=== PATIENT | male | born 1965 | race Caucasian/White ===

== ENCOUNTER 2018-05-10 15:40 | Emergency (ER) | payer BC, OTHER ==
[2018-05-10 15:57] VITALS: BP 125/92
--- NOTE | 2018-05-10 16:30 | UC ---
Throat Pain/Nasal Marko HPI - HPI Summary HPI Summary: Patient is a 53-year-old male with a history of ITP. He is here with a 3 day history of fever chills severe headache severe myalgias and severe arthralgias. He has had no rash. He denies any cough. He denies any abdominal pain. He has no UTI symptoms. He does have a sore throat. His son had mono 2 months ago. - History of Current Complaint Chief Complaint: UCGeneralIllness Stated Complaint: SORE THROAT, BODY ACHES Time Seen by Provider: 05/10/18 15:58 Hx Obtained From: Patient Onset/Duration: Sudden Onset, Lasting Days - 3 Severity: Moderate Pain Intensity: 6 Pain Scale Used: 0-10 Numeric Cough: None Associated Signs & Symptoms: Positive: Fever - Epiglottits Risk Factors Epiglottis Risk Factors: Negative - Allergies/Home Medications Allergies/Adverse Reactions: Allergies Allergy/AdvReac Type Severity Reaction Status Date / Time No Known Allergies Allergy Verified 05/10/18 15:57 Home Medications: Home Medications Acetaminophen [Tylenol Extra Strength] 1,000 mg PO DAILY 05/10/18 [History Confirmed 05/10/18] PMH/Surg Hx/FS Hx/Imm Hx Previously Healthy: Yes - Surgical History Surgical History: None - Family History Known Family History: Positive: Hypertension - Social History Alcohol Use: Rare Substance Use Type: None Smoking Status (MU): Never Smoked Tobacco Type: eCigarettes - Immunization History Most Recent Tetanus Shot: 03/11/13 Review of Systems Constitutional: Fever, Chills, Fatigue Skin: Negative Eyes: Negative ENT: Sore Throat Respiratory: Negative Cardiovascular: Negative Gastrointestinal: Negative Genitourinary: Negative Motor: Negative Neurovascular: Negative Musculoskeletal: Arthralgia, Myalgia Neurological: Headache Psychological: Negative Is Patient Immunocompromised?: No All Other Systems Reviewed And Are Negative: Yes Physical Exam Triage Information Reviewed: Yes Appearance: Well-Nourished, Ill-Appearing, Pain Distress Vital Signs: Initial Vital Signs Temp 100.6 F 05/10/18 15:53 Pulse 99 05/10/18 15:53 Resp 18 05/10/18 15:53 BP 125/92 05/10/18 15:53 Pulse Ox 100 05/10/18 15:53 Eyes: Positive: Conjunctiva Clear ENT: Positive: Hearing grossly normal, Pharyngeal erythema, TMs normal, Tonsillar swelling, Uvula midline. Negative: Nasal drainage, Tonsillar exudate , Trismus, Muffled voice, Hoarse voice, Sinus tenderness Neck: Positive: Supple, Nontender, No Lymphadenopathy Respiratory: Positive: Lungs clear, Normal breath sounds, No respiratory distress, No accessory muscle use Cardiovascular: Positive: RRR, No Murmur Abdomen Description: Positive: Nontender, No Organomegaly, Soft. Negative: CVA Tenderness (R), CVA Tenderness (L) Musculoskeletal: Positive: ROM Intact, No Edema Neurological: Positive: Alert Psychological Exam: Normal Skin Exam: Normal Diagnostics - Laboratory Diagnostic Studies Completed/Ordered: strep (-) Throat Pain/Nasal Course/Dx - Course Course Of Treatment: d/w [facility]. to [facility] ER. declines EMS transfer - Differential Dx/Diagnosis Provider Diagnoses: fever of uncertain cause Discharge - Sign-Out/Discharge Documenting (check all that apply): Patient Departure - Discharge Plan Condition: Stable Disposition: TRANS HIGHER LVL OF CARE FAC Referrals: Sylvester Pereira MD [Primary Care Provider] - Additional Instructions: I suggest you go straight to the ER for evaluation of you fever I spoke to NGUYỄN Willoughby - Billing Disposition and Condition Condition: STABLE Disposition: Trans Higher Lvl of Care Fac
== END 2018-05-10 16:28 | disposition short-term general hospital (02) ==
LOC: UCCORT 15:40
DX: R50.9 Fever, unspecified (principal)
CPT/HCPCS: 87651; 99212; G0463

== ENCOUNTER 2021-09-09 11:11 | Inpatient (IN) ==
[2021-09-09] MEDS ORDERED: Lactated Ringers 1000 ml BAG 1,000 ML IV ONE (11:28)
[2021-09-09 11:37] LABS: Hematocrit 42 % (42-52); Hemoglobin 14.3 g/dL (14.0-18.0); Mean Corpuscular HGB Conc 34 g/dL (31-36); Mean Corpuscular Hemoglobin 28 pg (27-31); Mean Corpuscular Volume 82 fL (80-94); Mean Platelet Volume 8.5 fL (7.4-10.4); Platelet Count 313 10^3/uL (150-450); Red Cell Distribution Width 13 % (10-15); Venous Bicarbonate HCO3 21.2 mmol/L (24-28); White Blood Count 8.7 10^3/uL (3.5-10.8)
[2021-09-09 11:54] LABS: ALT 15 U/L (7-52); AST 34 U/L (13-39); Albumin 2.6 g/dL (3.2-5.2); Albumin/Globulin Ratio 0.5 (1-3); Alkaline Phosphatase 91 U/L (35-149); Anion Gap 15 mmol/L (2-11); Blood Urea Nitrogen 14 mg/dL (6-24); CO2 Carbon Dioxide 21 mmol/L (22-32); Calcium 8.7 mg/dL (8.6-10.3); Chloride 95 mmol/L (101-111); Glucose 168 mg/dL (70-100); Potassium 3.9 mmol/L (3.5-5.0); Sodium 131 mmol/L (135-145); Total Protein 7.6 g/dL (6.4-8.9); eGFR CKD-EPI 88.9 (>60)
[2021-09-09 12:14] LABS: Troponin I 0.08 ng/mL (<0.03)
[2021-09-09 12:23] LABS: ABS Basophils 0.1 10^3/ul (0-0.2); ABS Lymphocytes 0.4 10^3/ul (1.0-4.8); ABS Monocytes 0.2 10^3/ul (0-0.8); Eosinophil % 0.2 %; Lymphocyte % 4.7 %
[2021-09-09] MEDS ORDERED: Iohexol 350 (CONTRAST) 500 ML MDV IV ONE (12:43)
[2021-09-09] MEDS ORDERED: Lactated Ringers 500 ml BAG 500 ML IV ONE ×2 (12:57→13:55)
[2021-09-09 13:24] LABS: Venous Bicarbonate HCO3 25.7 mmol/L (24-28)
[2021-09-09] MEDS ORDERED: cefTRIAXone 1 gm/50 mL NS BAG 1 GM/50 ML BAG IV ONE (14:34)
[2021-09-09] MEDS ORDERED: Azithromycin 500 mg/250 ml NS 500 MG/250 ML BAG IVPB ONE (14:35)
[2021-09-09 14:52] LABS: Troponin I 0.09 ng/mL (<0.03)
[2021-09-09] MEDS ORDERED: Albuterol/Ipratropium NEB.SOL (2.5/0.5 MG) 3 ML NEB.SOLN INH ONE (14:54)
[2021-09-09] MEDS ORDERED: Lactated Ringers 1000 ml BAG 1,000 ML IV SCH (17:00)
[2021-09-09] MEDS ORDERED: Furosemide 20 mg/2 ml IV VIAL IV SLOW PU ONE (21:01)
[2021-09-09 21:20] LABS: C Reactive Protein 122.07 mg/L (<8.01)
[2021-09-09 21:33] LABS: Cholesterol 107 mg/dL; HDL Cholesterol 23.1 mg/dL; LDL Cholesterol 58 mg/dL; Triglycerides 129 mg/dL
[2021-09-09] MEDS: Enoxaparin 40 MG/0.4 ML SYR SUBCUT SCH (21:34)
[2021-09-09 22:06] LABS: Troponin I 0.04 ng/mL (<0.03)
[2021-09-09 23:55] LABS: Ferritin > 1500.0 ng/mL (24-336)
[2021-09-10 07:38] LABS: Hematocrit 33 % (42-52); Hemoglobin 11.3 g/dL (14.0-18.0); Mean Corpuscular HGB Conc 34 g/dL (31-36); Mean Corpuscular Hemoglobin 28 pg (27-31); Mean Corpuscular Volume 82 fL (80-94); Mean Platelet Volume 8.3 fL (7.4-10.4); Platelet Count 212 10^3/uL (150-450); Red Blood Count 3.99 10^6 /uL (4.18-5.48); Red Cell Distribution Width 13 % (10-15); White Blood Count 6.6 10^3/uL (3.5-10.8)
[2021-09-10 07:53] LABS: Calcium 8.1 mg/dL (8.6-10.3); Potassium 3.6 mmol/L (3.5-5.0); eGFR CKD-EPI 110.4 (>60)
[2021-09-10] MEDS ORDERED: Lactated Ringers 1000 ml BAG 1,000 ML IV ONE (09:17)
[2021-09-10] MEDS: Aspirin EC 81 mg TAB.EC (enteric coated) PO SCH (09:58)
[2021-09-10 11:00] LABS: Erythrocyte Sed Rate 120 mm/Hr (0-19)
[2021-09-10] MEDS ORDERED: methylPREDNISolone 125 mg 2 ML VIAL IM ONE (12:19)
[2021-09-10] MEDS ORDERED: Furosemide 40 mg/4 ml IV VIAL IV ONE (12:25)
[2021-09-10] MEDS: cefTRIAXone 1 gm/50 mL NS BAG 1 GM/50 ML BAG IVPB SCH (14:00)
[2021-09-10] MEDS ORDERED: methylPREDNISolone 125 mg 2 ML VIAL IV ONE (14:03)
[2021-09-10] MEDS ORDERED: Perflutren Lipid Microsphere 3 ML VIAL ONE (14:13)
[2021-09-10] MEDS: Albuterol/Ipratropium NEB.SOL (2.5/0.5 MG) 3 ML NEB.SOLN INH SCH ×2 (16:26→19:06)
[2021-09-10] MEDS: methylPREDNISolone SOD 40 mg/ml 1 ml VIAL IV SCH ×2 (16:27→23:13)
[2021-09-10 18:02] LABS: Creatine Kinase 34 U/L (10-223)
[2021-09-10 18:23] LABS: Rheumatoid Factor 13 IU/mL (<15)
[2021-09-10 20:14] LABS: Urine Appearance Clear; Urine Bilirubin Negative (Negative); Urine Blood Negative (Negative); Urine Color Yellow; Urine Glucose Negative (Negative); Urine Ketones Negative (Negative); Urine Nitrite Negative (Negative); Urine Protein Negative (Negative); Urine Specific Gravity 1.013 (1.002-1.030); Urine Urobilinogen Negative (Negative)
[2021-09-10] MEDS: Enoxaparin 40 MG/0.4 ML SYR SUBCUT SCH (23:13)
[2021-09-10 23:57] LABS: HIV 4th Generation Preliminary Reactive (Nonreactive)
[2021-09-11 05:10] LABS: Hematocrit 31 % (42-52); Hemoglobin 10.4 g/dL (14.0-18.0); Mean Corpuscular HGB Conc 34 g/dL (31-36); Mean Corpuscular Hemoglobin 28 pg (27-31); Mean Corpuscular Volume 82 fL (80-94); Mean Platelet Volume 8.6 fL (7.4-10.4); Platelet Count 202 10^3/uL (150-450); Red Blood Count 3.76 10^6 /uL (4.18-5.48); Red Cell Distribution Width 13 % (10-15); White Blood Count 5.5 10^3/uL (3.5-10.8)
[2021-09-11 05:12] LABS: ABS Lymphocytes 0.2 10^3/ul (1.0-4.8); ABS Monocytes 0.1 10^3/ul (0-0.8); ABS Neutrophils 5.2 10^3/ul (1.5-7.7); Lymphocyte % 3.1 %
[2021-09-11 05:26] LABS: Calcium 7.9 mg/dL (8.6-10.3); eGFR CKD-EPI 114.4 (>60)
[2021-09-11 06:06] LABS: Ferritin 1176.6 ng/mL (24-336)
[2021-09-11] MEDS: Albuterol/Ipratropium NEB.SOL (2.5/0.5 MG) 3 ML NEB.SOLN INH SCH ×3 (08:05→19:49)
[2021-09-11] MEDS: methylPREDNISolone SOD 40 mg/ml 1 ml VIAL IV SCH ×3 (09:13→23:16)
[2021-09-11] MEDS: Aspirin EC 81 mg TAB.EC (enteric coated) PO SCH (09:14)
[2021-09-11] MEDS ORDERED: methylPREDNISolone SOD 40 mg/ml 1 ml VIAL IV SCH (10:00)
[2021-09-11] MEDS ORDERED: Lidocaine 1% VIAL 10 MG/ML VIAL ONE (11:25)
[2021-09-11] MEDS ORDERED: Heparin 2 UNITS/ML 1000 mls 2,000 ML IV ONE (11:49)
[2021-09-11] MEDS ORDERED: fentaNYL 100 mcg/2 ml 50 MCG/ML VIAL ONE (11:49)
[2021-09-11] MEDS ORDERED: Iohexol 350 (CONTRAST) 200 ML MDV IV ONE (11:49)
[2021-09-11] MEDS ORDERED: Midazolam 5 mg/5 ml VIAL 1 mg/ml 5 ml VIAL (5 mg) ONE (11:49)
[2021-09-11] MEDS: cefTRIAXone 1 gm/50 mL NS BAG 1 GM/50 ML BAG IVPB SCH (14:00)
[2021-09-11 15:41] LABS: POC SO2 79 %
[2021-09-11 15:41] LABS: POC SO2 80 %
[2021-09-11] MEDS: Enoxaparin 40 MG/0.4 ML SYR SUBCUT SCH (20:12)
[2021-09-12 07:14] LABS: Hematocrit 33 % (42-52); Hemoglobin 11.1 g/dL (14.0-18.0); Mean Corpuscular HGB Conc 34 g/dL (31-36); Mean Corpuscular Hemoglobin 28 pg (27-31); Mean Corpuscular Volume 83 fL (80-94); Mean Platelet Volume 8.5 fL (7.4-10.4); Platelet Count 243 10^3/uL (150-450); Red Blood Count 3.96 10^6 /uL (4.18-5.48); Red Cell Distribution Width 13 % (10-15)
[2021-09-12] MEDS: Albuterol/Ipratropium NEB.SOL (2.5/0.5 MG) 3 ML NEB.SOLN INH SCH ×3 (07:21→19:24)
[2021-09-12 07:34] LABS: Calcium 8.1 mg/dL (8.6-10.3); Potassium 3.8 mmol/L (3.5-5.0); eGFR CKD-EPI 116.2 (>60)
[2021-09-12 09:07] LABS: ABS Lymphocytes 0.2 10^3/ul (1.0-4.8); ABS Monocytes 0.3 10^3/ul (0-0.8); ABS Neutrophils 6.5 10^3/ul (1.5-7.7); Lymphocyte % 2.3 %
[2021-09-12] MEDS: Aspirin EC 81 mg TAB.EC (enteric coated) PO SCH (09:45)
[2021-09-12] MEDS: methylPREDNISolone SOD 40 mg/ml 1 ml VIAL IV SCH ×3 (09:45→23:29)
[2021-09-12] MEDS ORDERED: cefTRIAXone 2 GM ADDV.VIAL 2 GM in NS 0.9% 100 ml BAG 100 ML IV SCH (15:00)
[2021-09-12 17:53] LABS: Complement C3 139 mg/dL (75 - 175)
[2021-09-12 18:06] LABS: Scleroderma Ab <0.2 U
[2021-09-12 18:10] LABS: Sm (Smith) IgG Antibody <0.2 U; U1 RNP IgG Autoabs 0.4 U
[2021-09-12 18:12] LABS: Anti SSA/RO Antibody <0.2 U; SS-B/La Antibody <0.2 U
[2021-09-12 21:19] LABS: % Iron Saturation 21 % (14 - 50); Total Iron Binding Capacity 143 mcg/dL (250 - 400)
[2021-09-12] MEDS: Enoxaparin 40 MG/0.4 ML SYR SUBCUT SCH (21:32)
[2021-09-12 22:46] LABS: HIV-1 Ab Differentiation,P Positive (Negative); HIV-2 Ab Differentiation,P Negative (Negative)
[2021-09-13 06:52] LABS: Hematocrit 33 % (42-52); Hemoglobin 11.2 g/dL (14.0-18.0); Mean Corpuscular HGB Conc 34 g/dL (31-36); Mean Corpuscular Hemoglobin 28 pg (27-31); Mean Corpuscular Volume 83 fL (80-94); Mean Platelet Volume 8.2 fL (7.4-10.4); Platelet Count 256 10^3/uL (150-450); Red Cell Distribution Width 13 % (10-15); White Blood Count 7.2 10^3/uL (3.5-10.8)
[2021-09-13 07:07] LABS: ABS Lymphocytes 0.1 10^3/ul (1.0-4.8); ABS Monocytes 0.2 10^3/ul (0-0.8); ABS Neutrophils 6.8 10^3/ul (1.5-7.7); Lymphocyte % 1.9 %
[2021-09-13 07:12] LABS: Calcium 7.9 mg/dL (8.6-10.3); Magnesium 1.9 mg/dL (1.9-2.7); Potassium 3.9 mmol/L (3.5-5.0); eGFR CKD-EPI 113.8 (>60)
[2021-09-13] MEDS: Albuterol/Ipratropium NEB.SOL (2.5/0.5 MG) 3 ML NEB.SOLN INH SCH ×3 (07:18→19:22)
[2021-09-13] MEDS: Aspirin EC 81 mg TAB.EC (enteric coated) PO SCH (11:04)
[2021-09-13 12:32] LABS: Aldolase 15.3 U/L (<7.7)
[2021-09-13] MEDS: methylPREDNISolone SOD 40 mg/ml 1 ml VIAL IV SCH (12:50)
[2021-09-13] MEDS: D5W IVPB SCH ×2 (13:00→21:13)
[2021-09-13] MEDS: TRIMETH IVPB SCH ×2 (13:00→21:13)
[2021-09-13] MEDS: SULFAMETHOXAZOLE IVPB SCH ×2 (13:00→21:13)
[2021-09-13 13:21] LABS: PCO2 Arterial 36 mmHg (35-45); PO2 Arterial 78 mmHg (80-100)
[2021-09-13] MEDS: Enoxaparin 40 MG/0.4 ML SYR SUBCUT SCH (20:55)
[2021-09-13] MEDS ORDERED: Lactated Ringers 500 ml BAG 500 ML IV ONE ×2 (21:40→23:01)
[2021-09-13] MEDS ORDERED: cefTRIAXone 1 gm/50 mL NS BAG 1 GM/50 ML BAG IVPB SCH (23:45)
[2021-09-14] MEDS ORDERED: Lactated Ringers 1000 ml BAG 1,000 ML IV SCH (01:00)
[2021-09-14] MEDS: TRIMETH IVPB SCH ×3 (05:13→20:00)
[2021-09-14] MEDS: D5W IVPB SCH ×3 (05:13→20:00)
[2021-09-14] MEDS: SULFAMETHOXAZOLE IVPB SCH ×3 (05:13→20:00)
[2021-09-14 06:36] LABS: Hematocrit 34 % (42-52); Hemoglobin 11.4 g/dL (14.0-18.0); Mean Corpuscular HGB Conc 34 g/dL (31-36); Mean Corpuscular Hemoglobin 28 pg (27-31); Mean Corpuscular Volume 83 fL (80-94); Mean Platelet Volume 8.1 fL (7.4-10.4); Platelet Count 255 10^3/uL (150-450); Red Blood Count 4.12 10^6 /uL (4.18-5.48); Red Cell Distribution Width 13 % (10-15); White Blood Count 5.8 10^3/uL (3.5-10.8)
[2021-09-14 07:00] LABS: ABS Lymphocytes 0.1 10^3/ul (1.0-4.8); ABS Monocytes 0.1 10^3/ul (0-0.8); ABS Neutrophils 5.6 10^3/ul (1.5-7.7); Eosinophil % 0.1 %; Lymphocyte % 1.6 %
[2021-09-14 07:11] LABS: Calcium 7.8 mg/dL (8.6-10.3); Magnesium 1.9 mg/dL (1.9-2.7); Potassium 4.3 mmol/L (3.5-5.0); eGFR CKD-EPI 111.5 (>60)
[2021-09-14] MEDS: Albuterol/Ipratropium NEB.SOL (2.5/0.5 MG) 3 ML NEB.SOLN INH SCH ×3 (07:56→20:32)
[2021-09-14] MEDS: Aspirin EC 81 mg TAB.EC (enteric coated) PO SCH ×2 (08:48→11:34)
[2021-09-14] MEDS ORDERED: Furosemide 20 mg/2 ml IV VIAL IV ONE ×2 (10:05→15:00)
[2021-09-14 10:06] LABS: % CD3 47 % (58-86); % CD4 2 % (32-64); % CD8 42 % (11-40); 4/8 H/S Ratio 0.1 (>=0.9); CD3 45 cells/mcL (550-2202); CD4 2 cells/mcL (365-1437); CD8 41 cells/mcL (117-846)
[2021-09-14] MEDS: Enoxaparin 40 MG/0.4 ML SYR SUBCUT SCH (20:07)
[2021-09-15] MEDS: SULFAMETHOXAZOLE IVPB SCH ×3 (03:55→19:18)
[2021-09-15] MEDS: TRIMETH IVPB SCH ×3 (03:55→19:18)
[2021-09-15] MEDS: D5W IVPB SCH ×3 (03:55→19:18)
[2021-09-15 06:05] LABS: Hematocrit 33 % (42-52); Hemoglobin 11.1 g/dL (14.0-18.0); Mean Corpuscular HGB Conc 34 g/dL (31-36); Mean Corpuscular Hemoglobin 28 pg (27-31); Mean Corpuscular Volume 82 fL (80-94); Platelet Count 279 10^3/uL (150-450); Red Blood Count 3.97 10^6 /uL (4.18-5.48); Red Cell Distribution Width 13 % (10-15); White Blood Count 5.7 10^3/uL (3.5-10.8)
[2021-09-15 06:26] LABS: Calcium 7.9 mg/dL (8.6-10.3); Magnesium 2.1 mg/dL (1.9-2.7); Potassium 4.2 mmol/L (3.5-5.0); eGFR CKD-EPI 109.9 (>60)
[2021-09-15] MEDS: Albuterol/Ipratropium NEB.SOL (2.5/0.5 MG) 3 ML NEB.SOLN INH SCH (07:48)
[2021-09-15 08:44] LABS: ABS Lymphocytes 0.1 10^3/ul (1.0-4.8); ABS Monocytes 0.1 10^3/ul (0-0.8); ABS Neutrophils 5.4 10^3/ul (1.5-7.7); Lymphocyte % 1.9 %; Nucleated Red Blood Cells % 0.1
[2021-09-15] MEDS: Aspirin EC 81 mg TAB.EC (enteric coated) PO SCH (08:58)
[2021-09-15 20:51] LABS: Urine Appearance Clear; Urine Bilirubin Negative (Negative); Urine Blood Negative (Negative); Urine Color Straw; Urine Glucose Negative (Negative); Urine Ketones Negative (Negative); Urine Nitrite Negative (Negative); Urine Protein Negative (Negative); Urine Specific Gravity 1.013 (1.002-1.030); Urine Urobilinogen Negative (Negative)
[2021-09-15] MEDS: Enoxaparin 40 MG/0.4 ML SYR SUBCUT SCH (21:01)
[2021-09-16] MEDS: SULFAMETHOXAZOLE IVPB SCH ×3 (03:20→19:19)
[2021-09-16] MEDS: D5W IVPB SCH ×3 (03:20→19:19)
[2021-09-16] MEDS: TRIMETH IVPB SCH ×3 (03:20→19:19)
[2021-09-16] MEDS: Albuterol/Ipratropium NEB.SOL (2.5/0.5 MG) 3 ML NEB.SOLN INH PRN (03:47)
[2021-09-16 08:09] LABS: Calcium 7.8 mg/dL (8.6-10.3); Magnesium 2.1 mg/dL (1.9-2.7); Potassium 4.7 mmol/L (3.5-5.0); eGFR CKD-EPI 112.6 (>60)
[2021-09-16 08:28] LABS: Hematocrit 34 % (42-52); Hemoglobin 11.6 g/dL (14.0-18.0); Mean Corpuscular HGB Conc 34 g/dL (31-36); Mean Corpuscular Hemoglobin 28 pg (27-31); Mean Corpuscular Volume 83 fL (80-94); Mean Platelet Volume 8.1 fL (7.4-10.4); Platelet Count 308 10^3/uL (150-450); Red Blood Count 4.12 10^6 /uL (4.18-5.48); Red Cell Distribution Width 14 % (10-15); White Blood Count 6.9 10^3/uL (3.5-10.8)
[2021-09-16] MEDS: Aspirin EC 81 mg TAB.EC (enteric coated) PO SCH (08:32)
[2021-09-16 09:18] LABS: ABS Lymphocytes 0.1 10^3/ul (1.0-4.8); ABS Monocytes 0.2 10^3/ul (0-0.8); ABS Neutrophils 6.6 10^3/ul (1.5-7.7); Eosinophil % 0.1 %; Lymphocyte % 1.4 %; Nucleated Red Blood Cells % 0.5
[2021-09-16] MEDS ORDERED: Furosemide 20 mg/2 ml IV VIAL IV ONE ×2 (11:18→15:00)
[2021-09-16] MEDS: Enoxaparin 40 MG/0.4 ML SYR SUBCUT SCH (21:24)
[2021-09-17] MEDS: SULFAMETHOXAZOLE IVPB SCH ×3 (03:30→18:25)
[2021-09-17] MEDS: TRIMETH IVPB SCH ×3 (03:30→18:25)
[2021-09-17] MEDS: D5W IVPB SCH ×3 (03:30→18:25)
[2021-09-17 07:37] LABS: Hematocrit 39 % (42-52); Hemoglobin 13.2 g/dL (14.0-18.0); Mean Corpuscular HGB Conc 34 g/dL (31-36); Mean Corpuscular Hemoglobin 28 pg (27-31); Mean Corpuscular Volume 83 fL (80-94); Mean Platelet Volume 7.8 fL (7.4-10.4); Platelet Count 350 10^3/uL (150-450); Red Blood Count 4.72 10^6 /uL (4.18-5.48); Red Cell Distribution Width 14 % (10-15); White Blood Count 6.8 10^3/uL (3.5-10.8)
[2021-09-17 07:43] LABS: ABS Lymphocytes 0.1 10^3/ul (1.0-4.8); ABS Monocytes 0.2 10^3/ul (0-0.8); ABS Neutrophils 6.5 10^3/ul (1.5-7.7); Eosinophil % 0.1 %; Lymphocyte % 1.9 %
[2021-09-17 08:01] LABS: Calcium 8.7 mg/dL (8.6-10.3); Magnesium 2.1 mg/dL (1.9-2.7)
[2021-09-17 08:03] LABS: Potassium 5.3 mmol/L (3.5-5.0)
[2021-09-17] MEDS ORDERED: Sodium Polystyrene ORAL.SUSP 15 GM/60 ML BTL PO ONE (11:02)
[2021-09-17] MEDS ORDERED: NS 0.9% 1000 ml BAG 1,000 ML IV SCH (11:15)
[2021-09-17 19:11] LABS: Calcium 8.6 mg/dL (8.6-10.3)
[2021-09-17 19:12] LABS: Potassium 5.1 mmol/L (3.5-5.0)
[2021-09-17] MEDS: Enoxaparin 40 MG/0.4 ML SYR SUBCUT SCH (19:47)
[2021-09-17] MEDS: Albuterol/Ipratropium NEB.SOL (2.5/0.5 MG) 3 ML NEB.SOLN INH PRN (19:56)
[2021-09-18] MEDS: SULFAMETHOXAZOLE IVPB SCH ×3 (02:57→21:09)
[2021-09-18] MEDS: D5W IVPB SCH ×3 (02:57→21:09)
[2021-09-18] MEDS: TRIMETH IVPB SCH ×3 (02:57→21:09)
[2021-09-18 06:20] LABS: Hematocrit 36 % (42-52); Mean Corpuscular HGB Conc 34 g/dL (31-36); Mean Corpuscular Hemoglobin 28 pg (27-31); Mean Corpuscular Volume 83 fL (80-94); Mean Platelet Volume 7.9 fL (7.4-10.4); Platelet Count 284 10^3/uL (150-450); Red Blood Count 4.27 10^6 /uL (4.18-5.48); Red Cell Distribution Width 14 % (10-15); White Blood Count 7.6 10^3/uL (3.5-10.8)
[2021-09-18 06:28] LABS: ABS Lymphocytes 0.1 10^3/ul (1.0-4.8); ABS Monocytes 0.2 10^3/ul (0-0.8); ABS Neutrophils 7.4 10^3/ul (1.5-7.7); Eosinophil % 0.1 %; Lymphocyte % 1.4 %
[2021-09-18 06:43] LABS: Calcium 8.1 mg/dL (8.6-10.3); Potassium 4.6 mmol/L (3.5-5.0); eGFR CKD-EPI 111.5 (>60)
[2021-09-18 07:29] LABS: Hepatitis B Surface Antigen Nonreactive (Nonreactive)
[2021-09-18 07:34] LABS: Hepatitis A Ab IgM Negative (Negative)
[2021-09-18 07:46] LABS: Hepatitis B Surface Ab Not Immune (Immune); Hepatitis C Antibody Negative (Negative)
[2021-09-18] MEDS: Albuterol/Ipratropium NEB.SOL (2.5/0.5 MG) 3 ML NEB.SOLN INH PRN (14:18)
[2021-09-18] MEDS: Enoxaparin 40 MG/0.4 ML SYR SUBCUT SCH (20:03)
[2021-09-19] MEDS: D5W IVPB SCH ×3 (02:43→20:46)
[2021-09-19] MEDS: TRIMETH IVPB SCH ×3 (02:43→20:46)
[2021-09-19] MEDS: SULFAMETHOXAZOLE IVPB SCH ×3 (02:43→20:46)
[2021-09-19 06:26] LABS: Hematocrit 34 % (42-52); Hemoglobin 11.5 g/dL (14.0-18.0); Mean Corpuscular HGB Conc 34 g/dL (31-36); Mean Corpuscular Hemoglobin 28 pg (27-31); Mean Corpuscular Volume 83 fL (80-94); Mean Platelet Volume 7.9 fL (7.4-10.4); Platelet Count 268 10^3/uL (150-450); Red Blood Count 4.08 10^6 /uL (4.18-5.48); Red Cell Distribution Width 14 % (10-15); White Blood Count 8.9 10^3/uL (3.5-10.8)
[2021-09-19 06:28] LABS: ABS Lymphocytes 0.1 10^3/ul (1.0-4.8); ABS Monocytes 0.1 10^3/ul (0-0.8); ABS Neutrophils 8.6 10^3/ul (1.5-7.7); Eosinophil % 0.1 %; Lymphocyte % 1.4 %; Nucleated Red Blood Cells % 0.2
[2021-09-19 06:36] LABS: Calcium 8.2 mg/dL (8.6-10.3); Magnesium 1.9 mg/dL (1.9-2.7); eGFR CKD-EPI 112.6 (>60)
[2021-09-19] MEDS: Enoxaparin 40 MG/0.4 ML SYR SUBCUT SCH (20:46)
[2021-09-20] MEDS: D5W IVPB SCH ×3 (03:19→19:58)
[2021-09-20] MEDS: SULFAMETHOXAZOLE IVPB SCH ×3 (03:19→19:58)
[2021-09-20] MEDS: TRIMETH IVPB SCH ×3 (03:19→19:58)
[2021-09-20 08:32] LABS: Hematocrit 36 % (42-52); Hemoglobin 12.1 g/dL (14.0-18.0); Mean Corpuscular HGB Conc 34 g/dL (31-36); Mean Corpuscular Hemoglobin 28 pg (27-31); Mean Corpuscular Volume 83 fL (80-94); Mean Platelet Volume 7.6 fL (7.4-10.4); Platelet Count 227 10^3/uL (150-450); Red Blood Count 4.31 10^6 /uL (4.18-5.48); Red Cell Distribution Width 14 % (10-15); White Blood Count 7.5 10^3/uL (3.5-10.8)
[2021-09-20 08:48] LABS: Calcium 8.5 mg/dL (8.6-10.3); Magnesium 2.1 mg/dL (1.9-2.7); Potassium 4.9 mmol/L (3.5-5.0); eGFR CKD-EPI 109.9 (>60)
[2021-09-20 09:43] LABS: ABS Lymphocytes 0.1 10^3/ul (1.0-4.8); ABS Monocytes 0.2 10^3/ul (0-0.8); ABS Neutrophils 7.2 10^3/ul (1.5-7.7); Eosinophil % 0.3 %; Lymphocyte % 1.5 %
[2021-09-20] MEDS ORDERED: Buffered Lidocaine 1% SYRIN 1 ml INTRADERM ONE (13:28)
[2021-09-20] MEDS: Enoxaparin 40 MG/0.4 ML SYR SUBCUT SCH (20:02)
[2021-09-21] MEDS: TRIMETH IVPB SCH ×3 (04:09→21:36)
[2021-09-21] MEDS: SULFAMETHOXAZOLE IVPB SCH ×3 (04:09→21:36)
[2021-09-21] MEDS: D5W IVPB SCH ×3 (04:09→21:36)
[2021-09-21] MEDS ORDERED: Sodium Chloride(INHALANT)0.9% 5 ML NEB.SOLN INH PRN (13:47)
[2021-09-21] MEDS ORDERED: Sodium Chloride(INHALANT) 7% 4 ML NEB.SOLN INH PRN (13:48)
[2021-09-21] MEDS: Enoxaparin 40 MG/0.4 ML SYR SUBCUT SCH (21:19)
[2021-09-22 04:24] LABS: Hematocrit 35 % (42-52); Hemoglobin 11.6 g/dL (14.0-18.0); Mean Corpuscular HGB Conc 33 g/dL (31-36); Mean Corpuscular Hemoglobin 28 pg (27-31); Mean Corpuscular Volume 85 fL (80-94); Mean Platelet Volume 7.1 fL (7.4-10.4); Platelet Count 181 10^3/uL (150-450); Red Blood Count 4.11 10^6 /uL (4.18-5.48); Red Cell Distribution Width 14 % (10-15)
[2021-09-22 04:28] LABS: ABS Lymphocytes 0.1 10^3/ul (1.0-4.8); ABS Monocytes 0.1 10^3/ul (0-0.8); ABS Neutrophils 7.7 10^3/ul (1.5-7.7); Eosinophil % 0.6 %; Lymphocyte % 1.3 %
[2021-09-22] MEDS: D5W IVPB SCH ×3 (04:29→19:59)
[2021-09-22] MEDS: SULFAMETHOXAZOLE IVPB SCH ×3 (04:29→19:59)
[2021-09-22] MEDS: TRIMETH IVPB SCH ×3 (04:29→19:59)
[2021-09-22 04:37] LABS: Calcium 8.3 mg/dL (8.6-10.3); Potassium 4.8 mmol/L (3.5-5.0); eGFR CKD-EPI 110.4 (>60)
[2021-09-22] MEDS: Albuterol/Ipratropium NEB.SOL (2.5/0.5 MG) 3 ML NEB.SOLN INH PRN (19:26)
[2021-09-22] MEDS: Enoxaparin 40 MG/0.4 ML SYR SUBCUT SCH (19:58)
[2021-09-23] MEDS: D5W IVPB SCH ×3 (03:35→21:17)
[2021-09-23] MEDS: TRIMETH IVPB SCH ×3 (03:35→21:17)
[2021-09-23] MEDS: SULFAMETHOXAZOLE IVPB SCH ×3 (03:35→21:17)
[2021-09-23 06:20] LABS: Hematocrit 34 % (42-52); Hemoglobin 11.6 g/dL (14.0-18.0); Mean Corpuscular HGB Conc 34 g/dL (31-36); Mean Corpuscular Hemoglobin 28 pg (27-31); Mean Corpuscular Volume 84 fL (80-94); Mean Platelet Volume 7.2 fL (7.4-10.4); Platelet Count 175 10^3/uL (150-450); Red Blood Count 4.11 10^6 /uL (4.18-5.48); Red Cell Distribution Width 15 % (10-15); White Blood Count 5.9 10^3/uL (3.5-10.8)
[2021-09-23 06:22] LABS: ABS Eosinophils 0.1 10^3/ul (0-0.6); ABS Lymphocytes 0.1 10^3/ul (1.0-4.8); ABS Monocytes 0.2 10^3/ul (0-0.8); ABS Neutrophils 5.5 10^3/ul (1.5-7.7); Eosinophil % 0.9 %; Lymphocyte % 1.8 %
[2021-09-23 06:37] LABS: Calcium 8.1 mg/dL (8.6-10.3); Magnesium 1.9 mg/dL (1.9-2.7); Potassium 4.6 mmol/L (3.5-5.0); eGFR CKD-EPI 115.6 (>60)
[2021-09-23] MEDS: Enoxaparin 40 MG/0.4 ML SYR SUBCUT SCH (21:18)
[2021-09-24] MEDS: D5W IVPB SCH ×3 (03:10→20:22)
[2021-09-24] MEDS: SULFAMETHOXAZOLE IVPB SCH ×3 (03:10→20:22)
[2021-09-24] MEDS: TRIMETH IVPB SCH ×3 (03:10→20:22)
[2021-09-24 06:54] LABS: Hematocrit 34 % (42-52); Hemoglobin 11.6 g/dL (14.0-18.0); Mean Corpuscular HGB Conc 34 g/dL (31-36); Mean Corpuscular Hemoglobin 29 pg (27-31); Mean Corpuscular Volume 84 fL (80-94); Mean Platelet Volume 7.2 fL (7.4-10.4); Platelet Count 147 10^3/uL (150-450); Red Blood Count 4.06 10^6 /uL (4.18-5.48); Red Cell Distribution Width 15 % (10-15); White Blood Count 5.4 10^3/uL (3.5-10.8)
[2021-09-24 06:56] LABS: ABS Lymphocytes 0.1 10^3/ul (1.0-4.8); ABS Monocytes 0.2 10^3/ul (0-0.8); ABS Neutrophils 5.1 10^3/ul (1.5-7.7); Eosinophil % 0.7 %; Lymphocyte % 1.3 %
[2021-09-24 07:28] LABS: Potassium 5.2 mmol/L (3.5-5.0)
[2021-09-24 14:59] LABS: TB1 Ag minus Nil Result -0.01 IU/mL; TB2 Ag minus Nil Result -0.01 IU/mL
[2021-09-24 15:02] LABS: QuantiferonTb Gold Plus Result Negative (Negative)
[2021-09-24] MEDS: Enoxaparin 40 MG/0.4 ML SYR SUBCUT SCH (20:20)
[2021-09-25] MEDS: D5W IVPB SCH ×3 (03:55→20:37)
[2021-09-25] MEDS: TRIMETH IVPB SCH ×3 (03:55→20:37)
[2021-09-25] MEDS: SULFAMETHOXAZOLE IVPB SCH ×3 (03:55→20:37)
[2021-09-25 06:20] LABS: Hematocrit 33 % (42-52); Hemoglobin 11.1 g/dL (14.0-18.0); Mean Corpuscular HGB Conc 34 g/dL (31-36); Mean Corpuscular Hemoglobin 29 pg (27-31); Mean Corpuscular Volume 85 fL (80-94); Mean Platelet Volume 7.3 fL (7.4-10.4); Platelet Count 141 10^3/uL (150-450); Red Blood Count 3.89 10^6 /uL (4.18-5.48); Red Cell Distribution Width 15 % (10-15); White Blood Count 4.5 10^3/uL (3.5-10.8)
[2021-09-25 06:39] LABS: Calcium 7.7 mg/dL (8.6-10.3); Magnesium 1.9 mg/dL (1.9-2.7); Potassium 4.5 mmol/L (3.5-5.0); eGFR CKD-EPI 111.5 (>60)
[2021-09-25 08:24] LABS: ABS Eosinophils 0.1 10^3/ul (0-0.6); ABS Lymphocytes 0.1 10^3/ul (1.0-4.8); ABS Monocytes 0.1 10^3/ul (0-0.8); ABS Neutrophils 4.2 10^3/ul (1.5-7.7); Eosinophil % 1.8 %; Lymphocyte % 1.9 %
[2021-09-25 08:26] LABS: RBC Morphology Normal (Normal)
[2021-09-25] MEDS ORDERED: Tenofovir/Emtricitab 300/200 MG TAB PO SCH (09:00)
[2021-09-25 09:23] LABS: Albumin 2.4 g/dL (3.2-5.2); Albumin/Globulin Ratio 0.8 (1-3); Direct Bilirubin 0.1 mg/dL (0.03-0.18); Globulin 3.2 g/dL (2-4); Indirect Bilirubin 0.2 mg/dL (0.3-1.0); Total Bilirubin 0.3 mg/dL (0.2-1.0); Total Protein 5.6 g/dL (6.4-8.9)
[2021-09-25 11:02] LABS: Urine Creatinine Concentration 9.01 mg/dL
[2021-09-25 11:19] LABS: Urine Osmo 146 mOsm/kg (150-1150)
[2021-09-25] MEDS: Enoxaparin 40 MG/0.4 ML SYR SUBCUT SCH (20:37)
[2021-09-26] MEDS: SULFAMETHOXAZOLE IVPB SCH ×3 (03:25→20:30)
[2021-09-26] MEDS: D5W IVPB SCH ×3 (03:25→20:30)
[2021-09-26] MEDS: TRIMETH IVPB SCH ×3 (03:25→20:30)
[2021-09-26 05:26] LABS: Hematocrit 33 % (42-52); Hemoglobin 11.2 g/dL (14.0-18.0); Mean Corpuscular HGB Conc 34 g/dL (31-36); Mean Corpuscular Hemoglobin 28 pg (27-31); Mean Corpuscular Volume 84 fL (80-94); Mean Platelet Volume 6.8 fL (7.4-10.4); Platelet Count 136 10^3/uL (150-450); Red Blood Count 3.95 10^6 /uL (4.18-5.48); Red Cell Distribution Width 16 % (10-15); White Blood Count 4.2 10^3/uL (3.5-10.8)
[2021-09-26 05:29] LABS: ABS Lymphocytes 0.1 10^3/ul (1.0-4.8); ABS Monocytes 0.1 10^3/ul (0-0.8); ABS Neutrophils 3.8 10^3/ul (1.5-7.7); Eosinophil % 1.2 %; Lymphocyte % 2.9 %; Nucleated Red Blood Cells % 0.1
[2021-09-26 05:48] LABS: Calcium 7.9 mg/dL (8.6-10.3); Magnesium 1.9 mg/dL (1.9-2.7); Potassium 4.5 mmol/L (3.5-5.0); eGFR CKD-EPI 112.6 (>60)
[2021-09-26] MEDS: Tenofovir/Emtricitab 300/200 MG TAB PO SCH (09:32)
[2021-09-26 17:19] LABS: Atazanavir w/Ritonavir SUSC; Darunavir w/Ritonavir SUSC; Doravirine SUSC; Fosamprenavir w/Ritonavir SUSC; HIV-1 Genotype Drug Resistance INTERP; Indinavir w/Ritonavir SUSC; Lopinavir w/Ritonavir SUSC; Saquinavir w/Ritonavir SUSC; Tipranavir w/Ritonavir SUSC
[2021-09-26] MEDS: Enoxaparin 40 MG/0.4 ML SYR SUBCUT SCH (20:22)
[2021-09-27] MEDS: D5W IVPB SCH ×4 (03:30→22:44)
[2021-09-27] MEDS: TRIMETH IVPB SCH ×4 (03:30→22:44)
[2021-09-27] MEDS: SULFAMETHOXAZOLE IVPB SCH ×4 (03:30→22:44)
[2021-09-27] MEDS: Magic MouthWash2-BEN/MAAL/LIDO/NYST 240 ML BTL (alt formulation) SWISH SPIT PRN ×3 (05:57→22:38)
[2021-09-27 06:02] LABS: Hematocrit 35 % (42-52); Hemoglobin 11.5 g/dL (14.0-18.0); Mean Corpuscular HGB Conc 33 g/dL (31-36); Mean Corpuscular Hemoglobin 28 pg (27-31); Mean Corpuscular Volume 86 fL (80-94); Mean Platelet Volume 6.9 fL (7.4-10.4); Platelet Count 125 10^3/uL (150-450); Red Blood Count 4.04 10^6 /uL (4.18-5.48); Red Cell Distribution Width 17 % (10-15); White Blood Count 3.6 10^3/uL (3.5-10.8)
[2021-09-27 06:08] LABS: ABS Eosinophils 0.1 10^3/ul (0-0.6); ABS Lymphocytes 0.1 10^3/ul (1.0-4.8); ABS Monocytes 0.1 10^3/ul (0-0.8); ABS Neutrophils 3.3 10^3/ul (1.5-7.7); Eosinophil % 1.5 %; Lymphocyte % 2.3 %
[2021-09-27 06:23] LABS: Calcium 7.8 mg/dL (8.6-10.3); Magnesium 1.9 mg/dL (1.9-2.7); Potassium 4.4 mmol/L (3.5-5.0); eGFR CKD-EPI 113.8 (>60)
[2021-09-27] MEDS: Tenofovir/Emtricitab 300/200 MG TAB PO SCH (07:37)
[2021-09-27] MEDS: Enoxaparin 40 MG/0.4 ML SYR SUBCUT SCH (20:55)
[2021-09-28 05:23] LABS: Hematocrit 36 % (42-52); Hemoglobin 12.1 g/dL (14.0-18.0); Mean Corpuscular HGB Conc 34 g/dL (31-36); Mean Corpuscular Hemoglobin 29 pg (27-31); Mean Corpuscular Volume 85 fL (80-94); Mean Platelet Volume 7.3 fL (7.4-10.4); Platelet Count 125 10^3/uL (150-450); Red Cell Distribution Width 17 % (10-15); White Blood Count 3.8 10^3/uL (3.5-10.8)
[2021-09-28 05:38] LABS: ABS Lymphocytes 0.1 10^3/ul (1.0-4.8); ABS Monocytes 0.1 10^3/ul (0-0.8); ABS Neutrophils 3.5 10^3/ul (1.5-7.7); Eosinophil % 0.7 %; Lymphocyte % 3.6 %
[2021-09-28] MEDS: Magic MouthWash2-BEN/MAAL/LIDO/NYST 240 ML BTL (alt formulation) SWISH SPIT PRN ×2 (07:17→11:30)
[2021-09-28] MEDS: D5W IVPB SCH ×3 (10:07→23:11)
[2021-09-28] MEDS: SULFAMETHOXAZOLE IVPB SCH ×3 (10:07→23:11)
[2021-09-28] MEDS: TRIMETH IVPB SCH ×3 (10:07→23:11)
[2021-09-28] MEDS: Tenofovir/Emtricitab 300/200 MG TAB PO SCH (11:09)
[2021-09-28] MEDS: Enoxaparin 40 MG/0.4 ML SYR SUBCUT SCH (21:08)
[2021-09-29] MEDS: D5W IVPB SCH ×3 (08:51→23:26)
[2021-09-29] MEDS: SULFAMETHOXAZOLE IVPB SCH ×3 (08:51→23:26)
[2021-09-29] MEDS: TRIMETH IVPB SCH ×3 (08:51→23:26)
[2021-09-29] MEDS: Tenofovir/Emtricitab 300/200 MG TAB PO SCH (08:56)
[2021-09-29] MEDS: Enoxaparin 40 MG/0.4 ML SYR SUBCUT SCH (22:26)
[2021-09-30 08:05] LABS: Calcium 8.1 mg/dL (8.6-10.3); Potassium 4.5 mmol/L (3.5-5.0); eGFR CKD-EPI 113.2 (>60)
[2021-09-30] MEDS: SULFAMETHOXAZOLE IVPB SCH ×3 (08:13→22:39)
[2021-09-30] MEDS: D5W IVPB SCH ×3 (08:13→22:39)
[2021-09-30] MEDS: TRIMETH IVPB SCH ×3 (08:13→22:39)
[2021-09-30 09:07] LABS: Osmolality Serum 280 mOsm/kg (275-295)
[2021-09-30] MEDS: Tenofovir/Emtricitab 300/200 MG TAB PO SCH (09:44)
[2021-09-30] MEDS: Magic MouthWash2-BEN/MAAL/LIDO/NYST 240 ML BTL (alt formulation) SWISH SPIT PRN (16:00)
[2021-09-30] MEDS: Enoxaparin 40 MG/0.4 ML SYR SUBCUT SCH (22:39)
[2021-10-01] MEDS: D5W IVPB SCH (08:51)
[2021-10-01] MEDS: TRIMETH IVPB SCH (08:51)
[2021-10-01] MEDS: SULFAMETHOXAZOLE IVPB SCH (08:51)
[2021-10-01] MEDS: Tenofovir/Emtricitab 300/200 MG TAB PO SCH (08:55)
[2021-10-01] MEDS: CMC:Oral Rinse (Biotene)(NF) 237 ML or 473 ML ORAL RINSE BTL MT SCH ×4 (10:10→22:12)
[2021-10-01] MEDS: Sulfamethox/Trimethoprim DS TAB 800/160 mg PO SCH ×2 (14:29→21:58)
[2021-10-01 17:07] LABS: HIT ELISA 0.053 OD (<0.400); Heparin PF4 Antibody Interp Negative (Negative)
[2021-10-01] MEDS: Enoxaparin 40 MG/0.4 ML SYR SUBCUT SCH (21:54)
[2021-10-02 05:38] LABS: Hematocrit 36 % (42-52); Hemoglobin 12.3 g/dL (14.0-18.0); Mean Corpuscular HGB Conc 34 g/dL (31-36); Mean Corpuscular Hemoglobin 29 pg (27-31); Mean Corpuscular Volume 87 fL (80-94); Mean Platelet Volume 6.7 fL (7.4-10.4); Platelet Count 132 10^3/uL (150-450); Red Cell Distribution Width 19 % (10-15); White Blood Count 3.9 10^3/uL (3.5-10.8)
[2021-10-02 05:57] LABS: ALT 75 U/L (7-52); AST 23 U/L (13-39); Albumin 2.6 g/dL (3.2-5.2); Albumin/Globulin Ratio 0.8 (1-3); Alkaline Phosphatase 90 U/L (35-149); Anion Gap 6 mmol/L (2-11); Blood Urea Nitrogen 16 mg/dL (6-24); CO2 Carbon Dioxide 27 mmol/L (22-32); Calcium 7.8 mg/dL (8.6-10.3); Chloride 95 mmol/L (101-111); Globulin 3.1 g/dL (2-4); Glucose 75 mg/dL (70-100); Potassium 4.3 mmol/L (3.5-5.0); Sodium 128 mmol/L (135-145); Total Protein 5.7 g/dL (6.4-8.9); eGFR CKD-EPI 104.8 (>60)
[2021-10-02 06:15] LABS: Anisocytosis 1+
[2021-10-02 06:16] LABS: ABS Eosinophils 0.3 10^3/ul (0-0.6); ABS Lymphocytes 0.2 10^3/ul (1.0-4.8); ABS Monocytes 0.2 10^3/ul (0-0.8); ABS Neutrophils 3.3 10^3/ul (1.5-7.7); Eosinophil % 6.5 %; Lymphocyte % 4.7 %; Nucleated Red Blood Cells % 0.1; Polychromasia 1+
[2021-10-02] MEDS: CMC:Oral Rinse (Biotene)(NF) 237 ML or 473 ML ORAL RINSE BTL MT SCH ×3 (07:02→14:01)
[2021-10-02] MEDS: Magic MouthWash2-BEN/MAAL/LIDO/NYST 240 ML BTL (alt formulation) SWISH SPIT PRN ×2 (07:02→11:37)
[2021-10-02] MEDS: Sulfamethox/Trimethoprim DS TAB 800/160 mg PO SCH ×2 (08:52→14:01)
[2021-10-02] MEDS: Tenofovir/Emtricitab 300/200 MG TAB PO SCH (08:53)
[2021-10-02 15:10] LABS: Anti-Mi-2 Ab Negative (Negative)
[2021-10-02 16:20] VITALS: BP 130/80
== END 2021-10-02 16:43 | disposition home or self-care (01) | DRG 890 ==
LOC: ED 11:11 → EDHOLD 11:11 → OBSVTOIN 20:25 → SUATTDRO 20:25 → MEDTELE 23:44
PROVIDERS: ADMIT Internal Medicine; ATTEND Internal Medicine